=== PATIENT | male | born 1945 | race African-American/Black ===

== ENCOUNTER 2023-03-05 16:23 | Inpatient (IN) | payer MEDICARE ==
[2023-03-05 16:55] VITALS: BMI 20.5
[2023-03-05] MEDS ORDERED: Gabapentin 100 MG CAP PO PRN (17:19)
[2023-03-05] MEDS ORDERED: Cyclobenzaprine 10 MG TAB PO PRN (17:19)
[2023-03-05] MEDS ORDERED: Ondansetron PF 4 MG/2 ML Vial IVP PRN (17:25)
[2023-03-05] MEDS ORDERED: Polyethylene Glycol 3350 17 GM Packet PO SCH (18:00)
[2023-03-05] MEDS: hydrALAZINE 20 MG/ML VIAL SLOW IVP PRN (18:25)
[2023-03-05] MEDS: Acetaminophen 325 MG TAB PO PRN ×2 (18:26→21:15)
[2023-03-05 19:22] LABS: Troponin I 0.053 ng/mL (< 0.028)
[2023-03-05] MEDS ORDERED: Latanoprost 0.005% Ophth Soln 2.5 ml Bottle EA EYE SCH (21:00)
[2023-03-05] MEDS ORDERED: Losartan Potassium 50 MG TAB PO SCH (21:00)
[2023-03-05] MEDS: Timolol 0.5% Ophth Soln 5 ml Bottle EA EYE SCH (21:13)
[2023-03-05] MEDS: Brimonidine Tartrate 0.2% Ophth Soln 5 ml Bottle EA EYE SCH (21:14)
[2023-03-05] MEDS: Docusate 100 MG CAP PO SCH (21:15)
[2023-03-06 00:51] LABS: Troponin I 0.056 ng/mL (< 0.028)
[2023-03-06 03:46] LABS: #Eosinphils 0.1 10x3/uL (0.0-0.5); #Monocytes 0.4 10x3/uL (0.0-1.1); #Neutrophils 1.9 10x3/uL (1.5-8.4); %Basophils 0.5 % (0.0-2.0); %Eosinophils 2.4 % (0.0-6.0); %Lymphocytes 35.7 % (18.0-47.0); %Monocytes 11.2 % (0.0-10.0); %Neutrophils 50.2 % (40.0-75.0); Hemoglobin 14.2 g/dL (13.5-17.5); Mean Corpuscular HGB CONC 32.4 g/dL (32.0-36.0); Mean Corpuscular Hemoglobin 30.9 pg (27.0-33.0); Mean Corpuscular Volume 95.2 fl (81.2-95.1); Mean Platelet Volume 9.9 fl (7.4-10.4); Platelet Count 144 10x3/uL (150-450); RBC Distribution Width 16.7 % (11.5-14.5); White Blood Cell (WBC) Count 3.8 10x3/uL (3.5-10.5)
[2023-03-06 03:47] LABS: Anion Gap 19 mmol/L (10-20); BUN (Urea Nitrogen) 32 mg/dL (8.4-25.7); Calc. Creatinine Clearance 6 mL/min (70-130); Calcium 9.4 mg/dL (7.8-10.44); Carbon Dioxide 26 mmol/L (23-31); Chloride 94 mmol/L (98-107); Estimated GFR 6; Glucose 68 mg/dL (83-110); Potassium 5.2 mmol/L (3.5-5.1); Sodium 134 mmol/L (136-145)
[2023-03-06] MEDS: Acetaminophen 325 MG TAB PO PRN (06:08)
[2023-03-06] MEDS: hydrALAZINE 20 MG/ML VIAL SLOW IVP PRN (06:09)
[2023-03-06] MEDS: Docusate 100 MG CAP PO SCH (08:33)
[2023-03-06] MEDS: Sevelamer 2.4 GM PACKET PO SCH ×2 (08:35→12:42)
[2023-03-06] MEDS: Brimonidine Tartrate 0.2% Ophth Soln 5 ml Bottle EA EYE SCH (08:38)
[2023-03-06] MEDS: Timolol 0.5% Ophth Soln 5 ml Bottle EA EYE SCH (08:39)
[2023-03-06] MEDS ORDERED: Polyethylene Glycol 3350 17 GM Packet PO SCH (09:00)
[2023-03-06] MEDS ORDERED: Atorvastatin Calcium 40 MG TAB PO SCH (09:00)
[2023-03-06] MEDS ORDERED: Amlodipine 10 MG TAB PO SCH (09:00)
[2023-03-06] MEDS ORDERED: Aspirin 81 mg Enteric Coated Tablet PO SCH (09:00)
[2023-03-06] MEDS ORDERED: Flecainide 50 MG TAB PO SCH (10:00)
[2023-03-06 11:52] VITALS: BP 145/81; TEMP 97.7
[2023-03-07] MEDS ORDERED: Flecainide 50 MG TAB PO SCH (09:00)
== END 2023-03-06 14:50 | disposition home or self-care (01) | DRG 308 ==
LOC: CSHTELE 16:23
PROVIDERS: ADMIT Emergency Medicine; ATTEND Physician Assistant Medical
PROC: 3E1M39Z Irrigation of Peritoneal Cavity using Dialysate, Percutaneous Approach (ICD-10-PCS; principal; 2023-03-05)
DX: I48.91 Unspecified atrial fibrillation (principal); N18.6 End stage renal disease; I13.2 Hypertensive heart and chronic kidney disease with heart failure and with stage 5 chronic kidney disease, or end stage renal disease; I50.42 Chronic combined systolic (congestive) and diastolic (congestive) heart failure; E78.5 Hyperlipidemia, unspecified; K21.9 Gastro-esophageal reflux disease without esophagitis; M10.9 Gout, unspecified; I16.0 Hypertensive urgency; D63.1 Anemia in chronic kidney disease; H40.9 Unspecified glaucoma; I48.0 Paroxysmal atrial fibrillation; E78.2 Mixed hyperlipidemia; R73.03 Prediabetes; I25.118 Atherosclerotic heart disease of native coronary artery with other forms of angina pectoris; I70.213 Atherosclerosis of native arteries of extremities with intermittent claudication, bilateral legs; E87.5 Hyperkalemia; K59.00 Constipation, unspecified; Z98.890 Other specified postprocedural states; Z79.82 Long term (current) use of aspirin; Z79.899 Other long term (current) drug therapy; Z99.2 Dependence on renal dialysis; Z87.891 Personal history of nicotine dependence
CPT/HCPCS: 36415; 71045; 71275; 74174; 80048; 80053; 82553; 83690; 83735; 84484; 85025; 93005; 93306; 96374; J0360